=== PATIENT | male | born 1960 ===

== ENCOUNTER 2020-05-07 15:08 | Outpatient (REF) | payer SELFPAY ==
[2020-05-07 15:31] LABS: Cholesterol 206 mg/dL
== END 2020-05-07 15:09 | disposition home or self-care (01) ==
LOC: HO.LNC 15:08
PROVIDERS: Visit Provider Pathology Anatomic Pathology & Clinical Pathology
DX: Z51.81 Encounter for therapeutic drug level monitoring (principal)
CPT/HCPCS: 82465